=== PATIENT | female | born 1975 | race Caucasian/White ===

== ENCOUNTER 2017-08-28 07:44 | Outpatient (CLI) | payer BC ==
--- NOTE | 2017-08-28 09:53 | ULT ---
GALLBLADDER ULTRASOUND: Date: 08/28/17 HISTORY: Abdominal pain. FINDINGS: The liver demonstrates increased echogenicity consistent with fatty infiltration. No focal mass or i ntrahepatic ductal dilatation is seen. No gallstones, gallbladder wall thickening, or pericholecysti c fluid is seen. The common duct measures 4.0 mm in diameter. The pancreas and right kidney are norm al. No free fluid is seen in Morison's pouch. IMPRESSION: 1. Fatty liver. 2. No evidence of cholelithiasis. POS: [facility]
== END 2017-08-28 07:45 | disposition home or self-care (01) ==
LOC: ULT 07:44
PROVIDERS: ATTEND Family Medicine
DX: R10.84 Generalized abdominal pain (principal); K76.0 Fatty (change of) liver, not elsewhere classified
CPT/HCPCS: 76705